=== PATIENT | male | born 1990 | race Caucasian/White ===

== ENCOUNTER 2021-09-24 14:20 | Emergency (ER) | payer MEDICAID ==
[~2021-09-24] VITALS: Ht 177.8 cm; Wt 74.8 kg
[2021-09-24] MEDS ORDERED: methylPREDNISolone SOD SUCC 125 MG/2 ML VL IV ONE (14:30)
[2021-09-24] MEDS ORDERED: ALBUTEROL SULF 2.5 MG/0.5ML(0.5%) NEB SOLN HHN ONE (14:30)
[2021-09-24] MEDS: IPRATROPIUM BROM 0.5 MG/2.5ML INH SOL HHN ONE ×2 (14:43→14:49)
[2021-09-24 16:01] LABS: Basophils # (auto) 0 10 ^3/uL (0-0.2); Basophils % (auto) 0.2 % (0.0-2.0); Eosinophils # (auto) 0 10 ^3/uL (0-0.8); Eosinophils % (auto) 0.2 % (0.0-7.0); Hematocrit 50.3 % (41.0-53.0); Hemoglobin 16.6 g/dL (13.5-17.5); Lymphocytes # (auto) 1.7 10 ^3/uL (0.4-5.4); Lymphocytes % (auto) 8.7 % (10.0-50.0); Mean Corpuscular Hemoglobin 30.5 pg (28.0-32.0); Mean Corpuscular Volume 92.4 fL (80.0-100.0); Monocytes # (auto) 1.3 10 ^3/uL (0-1.3); Monocytes % (auto) 6.6 % (0.0-12.0); Neutrophils # (auto) 16.5 10 ^3/uL (1.6-8.6); Neutrophils % (auto) 84.3 % (37.0-80.0); Nucleated Red Blood Cells % 0.1 %; Red Blood Cells 5.45 10^6/uL (4.5-5.90); Red Cell Distribution Width 13.3 % (11.8-14.3); White Blood Cell 19.6 10^3/uL (4.4-10.8)
[2021-09-24] MEDS ORDERED: diphenhdrAMINE HCL 50 MG/1 ML VL IV ONE (16:15)
[2021-09-24 16:34] LABS: Albumin 3.5 g/dL (3.4-5.0); Calcium 7.8 mg/dL (8.5-10.1); Potassium 3.1 mmol/L (3.5-5.1)
[2021-09-24 16:40] LABS: BUN/Creatinine Ratio 9.1; Bilirubin, Total 0.6 mg/dL (0.2-1.0); Total Protein 6.9 g/dL (6.4-8.2)
[2021-09-24 17:28] VITALS: BP 116/66
== END 2021-09-24 17:41 | disposition home or self-care (01) ==
LOC: EDBD 14:20 → ER 14:20
DX: T78.40XA Allergy, unspecified, initial encounter (principal); J45.909 Unspecified asthma, uncomplicated; Z91.018 Allergy to other foods; Z91.048 Other nonmedicinal substance allergy status; Y92.89 Other specified places as the place of occurrence of the external cause
CPT/HCPCS: 36415; 71045; 80053; 85025; 94644; 96374; 96375; 99285; J1200; J2930; J7644; 93005

== ENCOUNTER 2023-05-28 09:46 | Emergency (ER) | payer MEDICAID ==
[~2023-05-28] VITALS: Ht 177.8 cm; Wt 68.8 kg
[2023-05-28 10:00] VITALS: BP 107/71; PULSE 72; RESP 18; TEMP 97.8; O2SAT 97
[2023-05-28] MEDS ORDERED: CEPH500C PO (11:12)
[2023-05-28] MEDS ORDERED: IBU600T PO (11:12)
== END 2023-05-28 11:30 | disposition home or self-care (01) ==
LOC: ER 09:46
DX: S62.630D Displaced fracture of distal phalanx of right index finger, subsequent encounter for fracture with routine healing (principal); J45.909 Unspecified asthma, uncomplicated; F41.9 Anxiety disorder, unspecified; F15.90 Other stimulant use, unspecified, uncomplicated; Z48.00 Encounter for change or removal of nonsurgical wound dressing; X58.XXXD Exposure to other specified factors, subsequent encounter

== ENCOUNTER 2023-06-18 10:02 | Emergency (ER) | payer MEDICAID ==
[~2023-06-18 10:02] MED LIST: CEPH500C PO; IBU600T PO
== END 2023-06-18 10:57 | disposition left against medical advice (07) ==
LOC: ER 10:02
DX: S61.210D Laceration without foreign body of right index finger without damage to nail, subsequent encounter (principal); Z53.21 Procedure and treatment not carried out due to patient leaving prior to being seen by health care provider; X58.XXXD Exposure to other specified factors, subsequent encounter

== ENCOUNTER 2024-02-03 12:39 | Emergency (ER) | payer MEDICAID, OTHER ==
[~2024-02-03] VITALS: Ht 177.8 cm; Wt 73.2 kg
[2024-02-03] MEDS ORDERED: NAP500T PO (15:11)
[2024-02-03] MEDS ORDERED: CYCL-837 PO (15:11)
[2024-02-03 15:28] VITALS: PULSE 72
[2024-02-03 15:29] VITALS: BP 121/76; RESP 18; TEMP 98; O2SAT 99
== END 2024-02-03 15:30 | disposition home or self-care (01) ==
LOC: ER 12:39
DX: R51.9 Headache, unspecified (principal); K13.79 Other lesions of oral mucosa; J45.909 Unspecified asthma, uncomplicated; F12.10 Cannabis abuse, uncomplicated; V43.52XA Car driver injured in collision with other type car in traffic accident, initial encounter; Y93.89 Activity, other specified; Y92.89 Other specified places as the place of occurrence of the external cause; Y99.8 Other external cause status

== ENCOUNTER 2024-12-30 03:47 | Emergency (ER) | payer MEDICAID, OTHER ==
[~2024-12-30] VITALS: Ht 180.3 cm; Wt 67.8 kg
[~2024-12-30 03:47] MED LIST changes: +CYCL-837 PO; +NAP500T PO
[2024-12-30 03:55] VITALS: BP 127/83; PULSE 74; RESP 16; TEMP 97.6; O2SAT 99
[2024-12-30] MEDS ORDERED: ALBUAER3 IN (05:14)
[2024-12-30] MEDS ORDERED: HYDR2.5C39 TOP (05:14)
[2024-12-30] MEDS ORDERED: AZIT-43 PO (05:14)
[2024-12-30] MEDS ORDERED: PRED20TA2 PO (05:14)
--- NOTE | 2024-12-30 05:14 | ED.PDOC ---
SOB-HPI HPI Comments 34-YEAR-OLD MALE PRESENTS TO ER WITH COMPLAINTS OF COUGH X2 WEEKS. PATIENT WITH PAST MEDICAL HISTORY SIGNIFICANT FOR ASTHMA REPORTS THAT HE HAS BEEN EXPERIENCING A DRY COUGH WITH CLEAR PHLEGM X2 WEEKS. REPORTS HE HAS BEEN USING HIS ALBUTEROL INHALER WITH SLIGHT RELIEF. PATIENT PRESENTS TO ER IN NO DISTRESS, WITH VITALS STABLE AND ALSO REPORTS THAT HE DEVELOPED A HEMORRHOID TWO DAYS AGO THAT OCCURRED WITH COUGHING THAT HE WOULD LIKE TO HAVE EVALUATED IN ER TODAY. FEVER, BODY ACHES, CHILLS, SHORTNESS OF BREATH, CHEST PAIN, HEMOPTYSIS, SORE THROAT OR ANY FURTHER SYMPTOMS/COMPLAINTS Chief Complaint: Cough Time Seen by MD: 04:15 Primary Care Provider: KENY Contreras notes: Nurses Notes, Medications, Allergies Information Source: Patient Mode of Arrival: Ambulatory Past Medical History PAST MEDICAL HISTORY: Anxiety, Asthma Surgical History (Other): JAW SURGERY LEFT ARM SURGERY Family History Family History: Unknown Social History Smoker: Non-Smoker Alcohol: Denies ETOH Use Drugs: Marijuana Lives In: Home Constitutional: denies: chills, diaphoresis, fatigue, fever, malaise, sweats, weakness, others EENTM: denies: blurred vision, double vision, ear bleeding, ear discharge, ear drainage, ear pain, ear ringing, eye pain, eye redness, hearing loss, mouth pain, mouth swelling, nasal discharge, nose bleeding, nose congestion, nose pain, photophobia, tearing, throat pain, throat swelling, voice changes, others Respiratory: reports: others ( STATED IN HPI) Cardiovascular: denies: chest pain, dizzy spells, diaphoresis, Dyspnea on exertion, edema, irregular heart beat, left arm pain, lightheadedness, palpitations, PND, syncope, others Gastrointestinal: reports: others ( STATED IN HPI) Genitourinary: denies: burning, dysuria, flank pain, frequency, hematuria, incontinence, penile discharge, penile sore, pain, testicle pain, testicle swelling, urgency, others Neurological: denies: dizziness, fainting, headache, left sided numbness, left sided weakness, numbness, paresthesia, pre-existing deficit, right sided numbness, right sided weakness, seizure, speech problems, tingling, tremors, weakness, others Musculoskeletal: denies: back pain, gout, joint pain, joint swelling, muscle pain, muscle stiffness, neck pain, others Integumetry: denies: bruises, change in color, change in hair/nails, dryness, laceration, lesions, lumps, rash, wounds, others Allergic/Immunocompromised: denies: Difficulty Healing, Frequent Infections, Hives, Itching, others Hematologic/Lymphatic: denies: anemia, blood clots, easy bleeding, easy bruising, swollen glands, others Endocrine: denies: excessive hunger, excessive sweating, excessive thirst, excessive urination, flushing, intolerance to cold, intolerance to heat, unexplained weight gain, unexplained weight loss, others Psychiatric: denies: anxiety, bipolar disorder, depression, hopeless, panic disorder, schizophrenia, sleepless, suicidal, others Physical Exam General Appearance: No Apparent Distress HEENT: Normal ENT Inspection, PERRL/EOMI, Pharynx Normal, TMs Normal Neck: Full Range of Motion, Non-Tender, Normal Respiratory: Chest Non-Tender, Lungs Clear, No Accessory Muscle Use, No Respiratory Distress, Normal Breath Sounds Cardiovascular: No Murmur, No Gallop, Regular Rate/Rhythm Breast Exam: Deferred Gastrointestinal: Non Tender, No Pulsatile Mass, Soft Genitalia: Deferred Pelvic: Deferred Rectal: Hemorrhoids (SMALL LEFT SIDED EXTERNAL HEMORRHOID NOTED WITHOUT BLEEDING/DRAINAGE), Normal rectal tone Extremities: Normal capillary refill, Normal range of motion Neurologic: Alert, No Motor Deficits, Normal Affect, Normal Mood, No Sensory Deficits Cerebellar Function: Normal Reflexes: Normal Skin: Dry, Normal Color, Warm Peripheral Pulses: 2+ Radial (R), 2+ Radial (L), 2+ Brachial (R), 2+ Brachial (L) Lymphatic: No Adenopathy Was a procedure done? Was a procedure done?: No Sedation Sedation?: No Differential Dx Differential Diagnosis: Pneumonia, Respiratory Distress, Sinusitis, Pharyngitis X-Ray, Labs, Meds, VS Vital Signs Date Time Temp Pulse Resp B/P (MAP) Pulse Ox O2 Delivery O2 Flow Rate FiO2 12/30/24 03:55 16 99 Room Air* 0 21 12/30/24 03:55 97.6 74 16 127/83 (98) 99 SOLU-MEDROL 125 MG IM ORDERED PATIENT HAD IMPROVEMENT IN SYMPTOMS AND IN NO DISTRESS PRIOR TO DISCHARGE ADVISED TO DRINK PLENTY OF FLUIDS ADVISED TO FOLLOW UP WITH PCP IN 1-2 DAYS PATIENT VERBALIZED UNDERSTANDING AND AGREEABLE WITH CURRENT PLAN OF CARE ADVISED TO RETURN TO ER IMMEDIATELY IF SYMPTOMS WORSEN Time of 1ST Reevaluation: 04:44 Reevaluation 1ST: N/A Patient Education/Counseling: Diagnosis, Treatment, Prognosis, Need For Follow Up Family Education/Counseling: No Family Present Departure 1 Departure Time of Disposition: 05:02 Impression: Primary Impression: Acute asthmatic bronchitis Additional Impression: External hemorrhoid Disposition: HOME / SELF CARE / HOMELESS Condition: Stable e-Prescriptions Albuterol Sulfate (VENTOLIN MDI) 90 Mcg Ih 2 PUFF IN Q4HPRN, #1 INH 0 Refills Prov: BHUPINDER DUPREE 12/30/24 Prednisone (Prednisone) 20 Mg Tab 20 MG PO BID for 5 Days, #10 TAB 0 Refills Prov: BHUPINDER DUPREE 12/30/24 Azithromycin (Azithromycin) 250 Mg Tab 250 MG PO DAILY MDD 500 for 5 Days, #6 TAB 0 Refills 2 TABLETS ORALLY ON DAY ONE, THEN 1 TABLET ORALLY DAILY FOR 4 DAYS Prov: BHUPINDER DUPREE 12/30/24 Hydrocortisone Base (Anusol-Hc) 2.5 % Cre 1 APPLIC TOP BID PRN, #1 CRE 0 Refills Prov: BHUPINDER DUPREE 12/30/24 Discharged With: Self Critical Care Note Critical Care Time?: No Stability Stability form required: No Heart Score Heart Score: Heart Score Response (Comments) Value History N/A 0 EKG N/A 0 Age N/A 0 Risk Factors N/A 0 Troponin N/A 0 Total 0 BHUPINDER DUPREE Dec 30, 2024 05:14
[2024-12-30] MEDS: methylPREDNISolone SOD SUCC 125 MG/2 ML VL IM ONE (05:53)
== END 2024-12-30 06:05 | disposition home or self-care (01) ==
LOC: ER 03:47
DX: J45.909 Unspecified asthma, uncomplicated (principal); K64.4 Residual hemorrhoidal skin tags; F12.90 Cannabis use, unspecified, uncomplicated; Z98.890 Other specified postprocedural states
CPT/HCPCS: 96372; 99283; J2919